=== PATIENT | female | born 1990 | race Caucasian/White ===

== ENCOUNTER 2022-07-24 07:37 | Day surgery (SDC) | payer OTHER ==
[2022-07-24] MEDS: CEFAZOLIN 2 GM-D5W BAG** 2 GM/50 ML ML IV SCH (07:45)
[2022-07-24] MEDS: Lactated Ringers 1,000 ML IV SCH (07:45)
[2022-07-24 08:01] LABS: HCG URINE TEST NEGATIVE (NEGATIVE)
[2022-07-24] MEDS ORDERED: Xylocaine-Mpf 2% 5 Ml Vial ONE (09:37)
[2022-07-24] MEDS ORDERED: DIPRIVAN 200 MG/20 ML IV ONE (09:37)
[2022-07-24] MEDS ORDERED: SUBLIMAZE 100 MCG/2 ML ONE (09:37)
[2022-07-24] MEDS ORDERED: Decadron 4 MG INJ ONE (09:37)
[2022-07-24] MEDS ORDERED: TORAdol 30 mg Injection ONE (09:37)
[2022-07-24] MEDS ORDERED: Versed 2 MG/2 ML Injection ONE (09:37)
[2022-07-24] MEDS ORDERED: Zofran 4 MG/2 ML VIAL ONE (09:37)
[2022-07-24] MEDS ORDERED: ARZOL Silver Nitrate Applicator TP ONE ×2 (10:24→13:10)
[2022-07-24 11:28] VITALS: BP 112/69; PULSE 73; O2SAT 100
--- NOTE | 2022-07-25 09:56 | OP ---
SURGERY DATE/TIME: 07/24/2022 0957 PREOPERATIVE DIAGNOSIS: Persistent post-coital bleeding. POSTOPERATIVE DIAGNOSIS: Persistent post-coital bleeding. PROCEDURE: Hysteroscopy D&C with ablation. SURGEON: Mike Blum D.O. WEB MACHINE TENDER: Valencia Manrique neurosurgical nurse practitioner. ANESTHESIA: General. ESTIMATED BLOOD LOSS: Minimal. COMPLICATIONS: None. INDICATIONS: The risks, benefits, indications and alternatives of the procedure were reviewed with the patient prior to procedure. The patient understood the risk of infection, bleeding, bowel injury, bladder injury, uterine perforation, pelvic infection and thromboembolic disorder associated with this surgery and desires to have this surgery as a possible means to alleviate her current medical condition. DESCRIPTION OF PROCEDURE AND FINDINGS: At this point the patient is taken to the operating room, given general sedation, placed in dorsal lithotomy position, prepped and draped in the usual sterile fashion. A weighted speculum is then placed in the patient's vagina and the anterior lip of the cervix grasped with a single tooth tenaculum. Endocervical dilators were advanced through the endocervical canal as a means to dilate the cervix and a 5 mm hysteroscope was then placed through the endocervical region towards the fundal region where visualization appeared to be within normal limits and no gross abnormalities were noted within the endometrial canal. From this point the hysteroscope was removed and a curette was placed into the fundus of the uterus and curettage was performed in all quadrants of the uterus retrieving a mild amount of tissue. After completion of curettage, the NovaSure instrument was then placed through the endocervical region towards the fundal region where a length of 6.5 cm was noted and a width of 2.7 cm. The instrument was engaged. The machine was turned on for an ablative time of 1 minute and 48 seconds. After complete ablation, the NovaSure was then disengaged and removed from the uterine cavity without complication. From this point all instruments were then removed from the patient's vaginal region. The patient was then taken out of the dorsal lithotomy position and was taken out of anesthesia and then taken to the recovery room in stable condition. All instruments and laps were accounted for x2.
== END 2022-07-24 11:45 | disposition home or self-care (01) ==
LOC: SDC 07:37
PROVIDERS: ATTEND Obstetrics & Gynecology
DX: N93.0 Postcoital and contact bleeding (principal)
CPT/HCPCS: 36415; 81025; J0690; J1100; J1885; J2250; J2405; J2704; J3010; A9270-GY

== ENCOUNTER 2023-07-11 10:25 | Emergency (ER) | payer OTHER ==
--- NOTE | 2023-07-11 10:37 | ERPHSYRPT ---
- History of Present Illness Time Seen by Provider: 07/11/23 10:36 Source: patient Exam Limitations: no limitations Physician History: This is a 32-year-old white female patient of Dr. Brock who presents to the emergency department by private vehicle on her own secondary to numbness in both her hands and feet as well as perioral numbness. She had an episode approximat arsen 1 week ago after having a headache. Symptoms somewhat subsided. She had an associated cough at that time and was under the thought that she might have flu like symptoms. She then went to [facility] where a COVID, flu and RSV test were negative. She has not had a fever. She no longer has a cough. She denies chest pain. She has no diarrhea. She has no nausea vomiting or diarrhea symptoms. She did not suffer any head injury. There are no new stressors in her life. She is not on any new medications. Patient does have a history of depression and takes metformin for polycystic ovary syndrome. Patient states that while at work she noticed recurrence of the numbness in both her hands and around her mouth and in her feet. On arrival to the emergency room, she noticed her numbness symptoms have somewhat subsided but have not completely gone away. Patient has known that she has a rapid heart rate. She does not see a heel shaper. This may be related to her medication Adderall that she is taking. Timing/Duration: week(s) (1) Severity: mild (To moderate) Modifying Factors: Improves With: nothing Associated Symptoms: denies symptoms Allergies/Adverse Reactions: pineapple Allergy (Verified 07/11/23 10:30) Home Medications: Cetirizine HCl [Zyrtec] 10 mg PO DAILY 07/09/22 [History] Lamotrigine [Lamotrigine (Blue)] 50 mg PO DAILY 07/09/22 [History] Metformin HCl 500 mg [Glucophage 500 MG] 500 mg PO BIDWM 07/09/22 [History] Ibuprofen 200 mg [Motrin 200 mg] 800 mg PO UD 07/24/22 [History] Norgestrel-Ethinyl Estradiol [Ojm-[id number] Tablet] 1 each PO DAILY 07/24/22 [History] buPROPion HCL [Wellbutrin Xl] 300 mg PO DAILY 07/24/22 [History] Dextroamphetamine/Amphetamine [Adderall Xr 25 mg Capsule] 25 mg PO DAILY 07/08/23 [History] Travel Risk - International Travel Have you traveled outside of the country in past 3 weeks: No - Emerging Infectious Disease Are you exhibiting symptoms associated with any current EIDs: No - Review of Systems Constitutional: No Symptoms Eyes: No Symptoms Ears, Nose, & Throat: No Symptoms Respiratory: No Symptoms Cardiac: No Symptoms Abdominal/Gastrointestinal: No Symptoms Genitourinary Symptoms: No Symptoms Musculoskeletal: No Symptoms Skin: No Symptoms Neurological: Other (Numbness of hands feet and perioral numbness) Psychological: No Symptoms Endocrine: No Symptoms Hematologic/Lymphatic: No Symptoms Immunological/Allergic: No Symptoms All Other Systems: Reviewed and Negative - Past Medical History Pertinent Past Medical History: Yes Psycho-Social History: Depression Female Reproductive Disorders: Other Other Medical History: pcos - Past Surgical History Past Surgical History: Yes Female Surgical History: Tubal Ligation, Other Other Surgical History: ablation - Social History Smoking Status: Never smoker Exposure to second hand smoke: No Drug Use: none - Nursing Vital Signs Nursing Vital Signs: Initial Vital Signs Pulse Rate 112 H 07/11/23 10:30 Respiratory Rate 19 07/11/23 10:30 Blood Pressure 154/104 07/11/23 10:30 Pain Scale Pain Intensity 0 - Physical Exam General Appearance: no apparent distress, alert, anxiety, thin Eye Exam: PERRL/EOMI, eyes nml inspection Ears, Nose, Throat Exam: normal ENT inspection, moist mucous membranes Neck Exam: normal inspection, non-tender, supple, full range of motion Respiratory Exam: normal breath sounds, lungs clear, airway intact, No chest tenderness, No respiratory distress Cardiovascular Exam: tachycardia Gastrointestinal/Abdomen Exam: soft, normal bowel sounds, No tenderness Pelvic Exam: not done Rectal Exam: not done Back Exam: normal inspection, normal range of motion, No CVA tenderness, No vertebral tenderness Extremity Exam: normal inspection, normal range of motion, pelvis stable Neurologic Exam: alert, oriented x 3, cooperative, 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 Today's twelve-lead EKG shows no changes when compared to the sinus tachycardia that was present on twelve-lead EKG dated 07/08/2023) Ordered Tests: Active Orders 24 hr Category Date Time Status Armature Varnisher STAT Care 07/11/23 10:48 Active EKG-ER Only STAT Care 07/11/23 10:47 Active IV Insertion STAT Care 07/11/23 10:47 Active NPO (ED) STAT Care 07/11/23 10:47 Active Pulse Oximetry (ED) STAT Care 07/11/23 10:47 Active HEAD WITHOUT CONTRAST [CT] Stat Exams 07/11/23 10:47 Completed CBC W DIFF Stat Lab 07/11/23 10:50 Completed CMP Stat Lab 07/11/23 10:50 Completed CULTURE,URINE Stat Lab 07/11/23 10:47 Received HCG QUALITATIVE, SERUM Stat Lab 07/11/23 10:50 Completed MAGNESIUM Stat Lab 07/11/23 10:50 Completed TROPONIN Q4H Lab 07/11/23 11:00 Completed TROPONIN Q4H Lab 07/11/23 15:15 Ordered TROPONIN Q4H Lab 07/11/23 19:15 Ordered UA W/RFX UR CULTURE Stat Lab 07/11/23 10:47 Completed Urine Triage Profile Stat Lab 07/11/23 11:03 Completed Lab/Rad Data: Laboratory Result Diagrams 07/11/23 10:50 07/11/23 10:50 Laboratory Results 07/11/23 07/11/23 07/11/23 Range/Units 11:03 11:00 10:50 WBC (4.0-10.5) x10^3/uL RBC (4.1-5.4) x10^6/uL Hgb (12.0-16.0) g/dL Hct (35-47) % MCV (78-100) fL MCH (26-32) pg MCHC (32-36) g/dL RDW (11.5-14.0) % Plt Count (150-450) x10^3/uL MPV (7.5-11.0) fL Gran % (36.0-66.0) % Immature Gran % (Auto) (0.00-0.4) % Nucleat RBC Rel Count (0.00-0.1) % Eos # (Auto) (0-0.5) x10^3/uL Immature Gran # (Auto) (0.00-0.03) x10^3u/L Absolute Lymphs (auto) (1.0-4.6) x10^3/uL Absolute Monos (auto) (0.0-1.3) x10^3/uL Absolute Nucleated RBC (0.00-0.01) x10^3u/L Lymphocytes % (24.0-44.0) % Monocytes % (0.0-12.0) % Eosinophils % (0.00-5.0) % Basophils % (0.0-0.4) % Absolute Granulocytes (1.4-6.9) x10^3/uL Basophils # (0-0.4) x10^3/uL Sodium (135-145) mmol/L Potassium (3.5-5.1) mmol/L Chloride (98-107) mmol/L Carbon Dioxide (22-30) mmol/L Anion Gap (5-15) MEQ/L BUN (7-17) mg/dL Creatinine (0.52-1.04) mg/dL Estimated GFR ML/MIN Glucose (74-106) mg/dL Calcium (8.4-10.2) mg/dL Magnesium (1.6-2.3) mg/dL Total Bilirubin (0.2-1.3) mg/dL AST (14-36) U/L ALT (0-35) U/L Alkaline Phosphatase (38-126) U/L Troponin I < 0.012 (0.000-0.033) ng/mL Serum Total Protein (6.3-8.2) g/dL Albumin (3.5-5.0) g/dL Serum HCG, Qual NEGATIVE (NEGATIVE) Urine Color (Yellow) Urine Appearance (Clear) Urine pH (4.6-8.0) Ur Specific Gordo (1.005-1.030) Urine Protein (Negative) Urine Glucose (UA) (Negative) mg/dL Urine Ketones (Negative) Urine Blood (Negative) Urine Nitrite (Negative) Urine Bilirubin (Negative) Urine Urobilinogen (0.2) mg/dL Ur Leukocyte Esterase (Negative) U Hyaline Cast (Auto) (0-2) /LPF Urine Microscopic RBC (0-5) /HPF Urine Microscopic WBC (0-5) /HPF Ur Epithelial Cells (None Seen) /HPF Urine Bacteria (None Seen) /HPF Urine Yeast (Budding) (None Seen) /HPF Urine Culture Reflexed (NO) Urine Opiates Level NEGATIVE (NEGATIVE) Ur Methadone NEGATIVE (NEGATIVE) Urine Barbiturates NEGATIVE (NEGATIVE) Ur Phencyclidine (PCP) NEGATIVE (NEGATIVE) Urine Amphetamine POSITIVE A (NEGATIVE) U Benzodiazepine Level NEGATIVE (NEGATIVE) Urine Cocaine NEGATIVE (NEGATIVE) Urine Marijuana (THC) NEGATIVE (NEGATIVE) 07/11/23 07/11/23 07/11/23 Range/Units 10:50 10:50 10:50 WBC 8.3 (4.0-10.5) x10^3/uL RBC 4.06 L (4.1-5.4) x10^6/uL Hgb 12.6 (12.0-16.0) g/dL Hct 38.1 (35-47) % MCV 93.8 (78-100) fL MCH 31.0 (26-32) pg MCHC 33.1 (32-36) g/dL RDW 11.6 (11.5-14.0) % Plt Count 286 (150-450) x10^3/uL MPV 9.5 (7.5-11.0) fL Gran % 78.9 H (36.0-66.0) % Immature Gran % (Auto) 0.2 (0.00-0.4) % Nucleat RBC Rel Count 0.0 (0.00-0.1) % Eos # (Auto) 0.12 (0-0.5) x10^3/uL Immature Gran # (Auto) 0.02 (0.00-0.03) x10^3u/L Absolute Lymphs (auto) 1.22 (1.0-4.6) x10^3/uL Absolute Monos (auto) 0.36 (0.0-1.3) x10^3/uL Absolute Nucleated RBC 0.00 (0.00-0.01) x10^3u/L Lymphocytes % 14.7 L (24.0-44.0) % Monocytes % 4.3 (0.0-12.0) % Eosinophils % 1.4 (0.00-5.0) % Basophils % 0.5 (0.0-0.4) % Absolute Granulocytes 6.56 (1.4-6.9) x10^3/uL Basophils # 0.04 (0-0.4) x10^3/uL Sodium 136 (135-145) mmol/L Potassium 3.9 (3.5-5.1) mmol/L Chloride 99 (98-107) mmol/L Carbon Dioxide 26 (22-30) mmol/L Anion Gap 15.2 H (5-15) MEQ/L BUN 12 (7-17) mg/dL Creatinine 0.90 (0.52-1.04) mg/dL Estimated GFR 86.0 ML/MIN Glucose 97 (74-106) mg/dL Calcium 9.1 (8.4-10.2) mg/dL Magnesium 1.6 (1.6-2.3) mg/dL Total Bilirubin 0.20 (0.2-1.3) mg/dL AST 18 (14-36) U/L ALT 16 (0-35) U/L Alkaline Phosphatase 77 (38-126) U/L Troponin I (0.000-0.033) ng/mL Serum Total Protein 7.6 (6.3-8.2) g/dL Albumin 4.1 (3.5-5.0) g/dL Serum HCG, Qual (NEGATIVE) Urine Color (Yellow) Urine Appearance (Clear) Urine pH (4.6-8.0) Ur Specific Gordo (1.005-1.030) Urine Protein (Negative) Urine Glucose (UA) (Negative) mg/dL Urine Ketones (Negative) Urine Blood (Negative) Urine Nitrite (Negative) Urine Bilirubin (Negative) Urine Urobilinogen (0.2) mg/dL Ur Leukocyte Esterase (Negative) U Hyaline Cast (Auto) (0-2) /LPF Urine Microscopic RBC (0-5) /HPF Urine Microscopic WBC (0-5) /HPF Ur Epithelial Cells (None Seen) /HPF Urine Bacteria (None Seen) /HPF Urine Yeast (Budding) (None Seen) /HPF Urine Culture Reflexed (NO) Urine Opiates Level (NEGATIVE) Ur Methadone (NEGATIVE) Urine Barbiturates (NEGATIVE) Ur Phencyclidine (PCP) (NEGATIVE) Urine Amphetamine (NEGATIVE) U Benzodiazepine Level (NEGATIVE) Urine Cocaine (NEGATIVE) Urine Marijuana (THC) (NEGATIVE) 07/11/23 Range/Units 10:47 WBC (4.0-10.5) x10^3/uL RBC (4.1-5.4) x10^6/uL Hgb (12.0-16.0) g/dL Hct (35-47) % MCV (78-100) fL MCH (26-32) pg MCHC (32-36) g/dL RDW (11.5-14.0) % Plt Count (150-450) x10^3/uL MPV (7.5-11.0) fL Gran % (36.0-66.0) % Immature Gran % (Auto) (0.00-0.4) % Nucleat RBC Rel Count (0.00-0.1) % Eos # (Auto) (0-0.5) x10^3/uL Immature Gran # (Auto) (0.00-0.03) x10^3u/L Absolute Lymphs (auto) (1.0-4.6) x10^3/uL Absolute Monos (auto) (0.0-1.3) x10^3/uL Absolute Nucleated RBC (0.00-0.01) x10^3u/L Lymphocytes % (24.0-44.0) % Monocytes % (0.0-12.0) % Eosinophils % (0.00-5.0) % Basophils % (0.0-0.4) % Absolute Granulocytes (1.4-6.9) x10^3/uL Basophils # (0-0.4) x10^3/uL Sodium (135-145) mmol/L Potassium (3.5-5.1) mmol/L Chloride (98-107) mmol/L Carbon Dioxide (22-30) mmol/L Anion Gap (5-15) MEQ/L BUN (7-17) mg/dL Creatinine (0.52-1.04) mg/dL Estimated GFR ML/MIN Glucose (74-106) mg/dL Calcium (8.4-10.2) mg/dL Magnesium (1.6-2.3) mg/dL Total Bilirubin (0.2-1.3) mg/dL AST (14-36) U/L ALT (0-35) U/L Alkaline Phosphatase (38-126) U/L Troponin I (0.000-0.033) ng/mL Serum Total Protein (6.3-8.2) g/dL Albumin (3.5-5.0) g/dL Serum HCG, Qual (NEGATIVE) Urine Color Yellow (Yellow) Urine Appearance Turbid A (Clear) Urine pH 6.5 (4.6-8.0) Ur Specific Gordo 1.010 (1.005-1.030) Urine Protein Negative (Negative) Urine Glucose (UA) Negative (Negative) mg/dL Urine Ketones Negative (Negative) Urine Blood Negative (Negative) Urine Nitrite Negative (Negative) Urine Bilirubin Negative (Negative) Urine Urobilinogen 0.2 (0.2) mg/dL Ur Leukocyte Esterase Small A (Negative) U Hyaline Cast (Auto) NONE SEEN (0-2) /LPF Urine Microscopic RBC 0-2 (0-5) /HPF Urine Microscopic WBC 11-20 A (0-5) /HPF Ur Epithelial Cells Many A (None Seen) /HPF Urine Bacteria Many A (None Seen) /HPF Urine Yeast (Budding) (None Seen) /HPF Urine Culture Reflexed YES (NO) Urine Opiates Level (NEGATIVE) Ur Methadone (NEGATIVE) Urine Barbiturates (NEGATIVE) Ur Phencyclidine (PCP) (NEGATIVE) Urine Amphetamine (NEGATIVE) U Benzodiazepine Level (NEGATIVE) Urine Cocaine (NEGATIVE) Urine Marijuana (THC) (NEGATIVE) - Progress Progress: improved, re-examined Progress Note: 07/11/23 11:00 My medical decision making and the assignment of moderate level complexity to the patient's medical complaint today is based on review of the patient's past medical history, review the patient's medication list, review the patient's drug allergy list, history present illness and physical findings on examination. The workup in this patient includes placement of intravenous line, CBC, CMP, troponin level, twelve-lead EKG, CT scan of the head without contrast, magnesium level, urinalysis, urine test and urine drug screen. The differential diagnosis includes anxiety, increase stress, dehydration, urinary tract infection, intracranial abnormality, positive urine drug screen, electrolyte abnormalities. 07/11/23 12:11 CT scan of the head without contrast was interpreted by the radiologist and I reviewed the impression. The impression states normal CT head without contrast. 07/11/23 12:44 I interpreted the patient's laboratory data results. I am still waiting for the urinalysis. However, patient does test positive for amphetamines. Patient is on Adderall. This may be the cause of her tachycardia. The remainder of her laboratory data results are negative for any acute or emergent medical issue. 07/11/23 12:56 This patient does have a urinary tract infection. Counseled pt/family regarding: lab results, diagnosis, need for follow-up, rad results Medical Desision Making - Diagnostic Testing Diagnostic test were ordered, analyzed, and reviewed by me: Yes Radiological Interpretation: Reviewed by me, Teleradiologist Report - Risk of complications Minimal Risk: Minimal risk of morbidity The pt has a mod risk of morbidity or mortality based on: Need for prescription drug management - Departure Departure Disposition: Home Clinical Impression: Numbness, Sinus tachycardia, Urinary tract infection Condition: Stable Critical Care Time: No Referrals: JOSE BROKC MD [Primary Care Provider] - Follow up/PCP as directed Additional Instructions: Drink plenty of fluids. Take your medications as prescribed. Call your prescribing provider today, to arrange an outpatient follow-up appointment in the next 3 to 5 days. In addition, discussed with them your tachycardia findings with possible referral to a heel shaper if indicated. Prescriptions: Cephalexin Mh 500 mg [Keflex 500 mg] 500 mg PO TID #21 cap
[2023-07-11 10:42] VITALS: TEMP 98
[2023-07-11 10:59] LABS: Absolute Neutrophil Ct (ANC) 6.56 x10^3/uL (1.4-6.9); BASOPHIL % 0.5 % (0.0-0.4); Basophil (Absolute #) 0.04 x10^3/uL (0-0.4); Eosinophil % 1.4 % (0.00-5.0); Eosinophil (Absolute #) 0.12 x10^3/uL (0-0.5); Hematocrit 38.1 % (35-47); Hemoglobin 12.6 g/dL (12.0-16.0); IMMATURE GRAN # 0.02 x10^3u/L (0.00-0.03); IMMATURE GRAN % 0.2 % (0.00-0.4); Lymphocyte (Absolute #) 1.22 x10^3/uL (1.0-4.6); Lymphocytes % 14.7 % (24.0-44.0); Mean Cell Volume 93.8 fL (78-100); Mean Corpuscular Hgb Concent. 33.1 g/dL (32-36); Mean Platelet Volume 9.5 fL (7.5-11.0); Monocyte (Absolute #) 0.36 x10^3/uL (0.0-1.3); Monocytes % 4.3 % (0.0-12.0); Neutrophil % 78.9 % (36.0-66.0); Platelet Count 286 x10^3/uL (150-450); Red Blood Count 4.06 x10^6/uL (4.1-5.4); Red Cell Distribution Width 11.6 % (11.5-14.0); White Blood Count 8.3 x10^3/uL (4.0-10.5)
[2023-07-11 11:14] LABS: HCG SERUM TEST NEGATIVE (NEGATIVE)
[2023-07-11 11:16] LABS: ALBUMIN 4.1 g/dL (3.5-5.0); ANION GAP 15.2 MEQ/L (5-15); BILIRUBIN,TOTAL 0.2 mg/dL (0.2-1.3); Calcium 9.1 mg/dL (8.4-10.2); Creatinine 1 0.9 mg/dL (0.52-1.04); Potassium 3.9 mmol/L (3.5-5.1); Total Protein 7.6 g/dL (6.3-8.2)
--- NOTE | 2023-07-11 11:42 | XRAY ---
Indication: Numbness. Multiple contiguous axial images obtained through the head without contrast. Comparison: None Normal appearing brain parenchyma, ventricles, and bony calvarium. Visualized paranasal sinuses and mastoid air cells are clear. Impression: Normal CT head without contrast exam.
[2023-07-11 12:08] LABS: Amphetamine,Urine POSITIVE (NEGATIVE); Barbiturate,Urine NEGATIVE (NEGATIVE); Benzodiazepine,Urine NEGATIVE (NEGATIVE); Cocaine,Urine NEGATIVE (NEGATIVE); Methadone,Urine NEGATIVE (NEGATIVE); Opiate,Urine NEGATIVE (NEGATIVE); THC,Urine NEGATIVE (NEGATIVE)
[2023-07-11 12:16] LABS: PCP,Urine NEGATIVE (NEGATIVE)
[2023-07-11 12:53] LABS: ADD URINE CULTURE? YES (NO); Appearance Turbid (Clear); Bacteria Many /HPF (None Seen); Bilirubin Negative (Negative); Blood Negative (Negative); Epithelial Cells Many /HPF (None Seen); Glucose, Urine Negative (Negative); Hyaline Casts NONE SEEN /LPF (0-2); Ketones Negative (Negative); Leukocyte Esterase Small (Negative); Nitrite Negative (Negative); Ph 6.5 (4.6-8.0); Protein,Urine Dip Negative (Negative); RBC 0-2 /HPF (0-5); Urobilinogen 0.2 mg/dL (0.2)
[2023-07-11] MEDS ORDERED: ROCEPHIN 1 GM / 100 ML NaCl 1 GM/100 ML IVPB IV ONE (12:58)
[2023-07-11] MEDS: ROCEPHIN 1 GM / 100 ML NaCl 1 GM/100 ML IVPB IV ONE (13:03)
[2023-07-11 13:06] VITALS: O2SAT 96
[2023-07-11 13:36] VITALS: BP 111/82; PULSE 123; RESP 19
== END 2023-07-11 13:37 | disposition home or self-care (01) ==
LOC: ED 10:25
DX: N39.0 Urinary tract infection, site not specified (principal); R00.0 Tachycardia, unspecified; R20.1 Hypoesthesia of skin; Z79.84 Long term (current) use of oral hypoglycemic drugs; Z79.899 Other long term (current) drug therapy
CPT/HCPCS: 36000; 36415; 70450; 80053; 80307; 81001; 83735; 84484; 84703; 85025; 87086; 93005; 93041; 94760; 96365; 99284; J0696